=== PATIENT | female | born 1945 | race Caucasian/White ===

== ENCOUNTER → 2017-10-04 | Outpatient (CLI) | payer MEDICARE ==
[~2017-10-04] MED LIST: CALCIUM + D 6001 TA1 PO; DIABETA5 MG PO; GABAPENTIN600 MG PO; HYDROCODONE BIT1 T11 PO; LANTUS100 U/ML SC; PRAVACHOL40 MG PO; VITAMIN D5000 I2 PO
== END | disposition home or self-care (01) ==
LOC: MAMMO 09-22 14:00 → RAD 09-28 13:30 → MAMMO 09-29 11:00 → RAD 09-29 13:30
DX: Z13.820 Encounter for screening for osteoporosis (principal); R92.8 Other abnormal and inconclusive findings on diagnostic imaging of breast; N95.9 Unspecified menopausal and perimenopausal disorder; Z90.710 Acquired absence of both cervix and uterus

== ENCOUNTER → 2018-11-23 | Outpatient (CLI) | payer MEDICARE | END | disposition home or self-care (01) | LOC: MAMMO 12:34 | DX: R92.8 Other abnormal and inconclusive findings on diagnostic imaging of breast (principal); R92.1 Mammographic calcification found on diagnostic imaging of breast ==

== ENCOUNTER 2019-09-12 15:26 | Emergency (ER) | payer MEDICARE ==
[~2019-09-12] VITALS: Ht 172.7 cm; Wt 80.3 kg
[2019-09-12 15:48] LABS: BASO % 0.4 % (0.0-1.0); EOS % 0.2 % (1.0-4.0); HEMOGLOBIN 14.8 g/dl (12.0-16.0); LYMPH % 30.7 % (27.0-41.0); MEAN CELL VOLUME 97.2 fl (81.0-99.0); MEAN CORPUSCULAR HGB CONC 32.9 g/dl (33.0-37.0); MEAN PLATELET VOLUME 10.2 fl (9.6-12.3); MONO # 0.5 10*3/uL (0.1-1.0); MONO % 5.3 % (3.0-9.0); NEUT # 6.2 10*3/uL (2.3-7.9); NEUT % 63.1 % (47.0-73.0); PLATELET COUNT AUTOMATED 167 10*3/uL (130-400); RED BLOOD COUNT 4.63 10*6/uL (4.10-5.10); RED CELL DISTRI WIDTH 13.2 % (0-14.5); WHITE BLOOD COUNT 9.9 10*3/uL (4.8-10.8)
[2019-09-12 16:04] LABS: ALBUMIN 3.9 gm/dl (3.1-4.5); ALKALINE PHOSPHATASE 97 U/L (45-117); BUN 20 mg/dl (7-24); CHLORIDE 102 mmol/L (98-107); POTASSIUM 3.7 mmol/L (3.5-5.1); SGOT/AST 24 IU/L (3-35); SGPT/ALT 28 U/L (12-78); SODIUM 139 mmol/L (136-145); TOTAL PROTEIN 7.3 gm/dL (6.4-8.2)
[2019-09-12 16:10] LABS: ACT PARTIAL THROMBO TIME 25.6 SECONDS (20.0-32.1); INTERNATIONAL NORM RATIO 0.9 (2.0-3.5)
== END 2019-09-12 23:33 | disposition short-term general hospital (02) ==
LOC: ED 15:26
PROVIDERS: Emergency Medicine
DX: S72.351A Displaced comminuted fracture of shaft of right femur, initial encounter for closed fracture (principal); R42 Dizziness and giddiness; E78.5 Hyperlipidemia, unspecified; Z90.49 Acquired absence of other specified parts of digestive tract; Z90.710 Acquired absence of both cervix and uterus; Z98.51 Tubal ligation status; Z96.652 Presence of left artificial knee joint; Z79.4 Long term (current) use of insulin; Z79.899 Other long term (current) drug therapy; Z88.8 Allergy status to other drugs, medicaments and biological substances; Z85.3 Personal history of malignant neoplasm of breast; W18.30XA Fall on same level, unspecified, initial encounter; Y93.89 Activity, other specified; Y92.89 Other specified places as the place of occurrence of the external cause; Y99.9 Unspecified external cause status

== ENCOUNTER → 2020-03-21 | Outpatient (CLI) | payer MEDICARE | END | disposition home or self-care (01) | LOC: COVID19 08:10 | DX: R50.9 Fever, unspecified (principal) ==

== ENCOUNTER → 2020-05-20 | Outpatient (CLI) | payer MEDICARE ==
[2020-05-20 13:56] LABS: BASO % 0.5 % (0.0-1.0); EOS % 0.3 % (1.0-4.0); HEMATOCRIT 45.5 % (37.0-47.0); LYMPH % 33.7 % (27.0-41.0); MEAN CELL VOLUME 94.6 fl (81.0-99.0); MEAN CORPUSCULAR HGB 30.4 pg (27.0-31.0); MEAN CORPUSCULAR HGB CONC 32.1 g/dl (33.0-37.0); MEAN PLATELET VOLUME 10.4 fl (9.6-12.3); MONO # 0.6 10*3/uL (0.1-1.0); MONO % 6.9 % (3.0-9.0); NEUT # 5.2 10*3/uL (2.3-7.9); NEUT % 58.3 % (47.0-73.0); PLATELET COUNT AUTOMATED 181 10*3/uL (130-400); RED BLOOD COUNT 4.81 10*6/uL (4.10-5.10); RED CELL DISTRI WIDTH 13.4 % (0-14.5); WHITE BLOOD COUNT 8.9 10*3/uL (4.8-10.8)
[2020-05-20 14:26] LABS: ALBUMIN 3.9 gm/dl (3.1-4.5); ALKALINE PHOSPHATASE 135 U/L (45-117); BUN 19 mg/dl (7-24); CHLORIDE 101 mmol/L (98-107); CHOLESTEROL 121 mg/dL (<200); CREATININE 0.68 mg/dL (0.55-1.02); HDL CHOLESTEROL 37 mg/dl (40-60); LDL CHOLESTEROL 49 mg/dL (9-159); POTASSIUM 4.2 mmol/L (3.5-5.1); SGOT/AST 26 IU/L (3-35); SGPT/ALT 28 U/L (12-78); SODIUM 137 mmol/L (136-145); TOTAL PROTEIN 7.6 gm/dL (6.4-8.2); TRIGLYCERIDES 177 mg/dl (<150); VLDL CHOLESTEROL 35 mg/dL (6-40)
[2020-05-20 14:48] LABS: VITAMIN D, 25-HYDROXY 91.8 ng/mL (30-100)
== END | disposition home or self-care (01) ==
LOC: LAB 12:56 → MAMMO 13:00
PROVIDERS: ATTEND Internal Medicine
DX: R92.2 Inconclusive mammogram (principal); E11.9 Type 2 diabetes mellitus without complications; E55.9 Vitamin D deficiency, unspecified; I10 Essential (primary) hypertension; R92.8 Other abnormal and inconclusive findings on diagnostic imaging of breast; Z00.00 Encounter for general adult medical examination without abnormal findings

== ENCOUNTER → 2020-12-18 | Outpatient (CLI) | payer MEDICARE | END | disposition home or self-care (01) | LOC: RAD 09:43 | PROVIDERS: ATTEND Internal Medicine | DX: M19.072 Primary osteoarthritis, left ankle and foot (principal); R60.0 Localized edema; M25.775 Osteophyte, left foot; M76.62 Achilles tendinitis, left leg; M77.32 Calcaneal spur, left foot ==

== ENCOUNTER → 2021-11-26 | Outpatient (CLI) | payer MEDICARE | END | disposition home or self-care (01) | LOC: LAB 13:02 → MAMMO 13:30 | PROVIDERS: ATTEND Internal Medicine | DX: Z13.820 Encounter for screening for osteoporosis (principal); R92.8 Other abnormal and inconclusive findings on diagnostic imaging of breast; Z90.710 Acquired absence of both cervix and uterus; Z78.0 Asymptomatic menopausal state ==

== ENCOUNTER 2022-12-05 16:09 | Inpatient (IN) | payer MEDICARE ==
[~2022-12-05] VITALS: Ht 172.7 cm; Wt 83.9 kg
[~2022-12-05 16:09] MED LIST changes: +CLOPIDOGREL75 MG PO; +GLIPIZIDE10 M2 PO; +LEVEMIR FL100 UNIT/1 SC; +LISINOPRIL2.5 MG PO; +MECLIZINE HCL25 M2 PO; +MELATONIN10 M6 PO; +WELLBUTRIN SR150 MG PO
[2022-12-05 16:15] VITALS: BP 155/88
[2022-12-05 16:59] LABS: BASO % 0.2 % (0.0-1.0); EOS % 0.1 % (1.0-4.0); HEMATOCRIT 38.5 % (37.0-47.0); LYMPH # 0.8 10*3/uL (1.3-4.4); LYMPH % 8.7 % (27.0-41.0); MEAN CORPUSCULAR HGB 29.9 pg (27.0-31.0); MEAN CORPUSCULAR HGB CONC 31.2 g/dl (33.0-37.0); MEAN PLATELET VOLUME 9.7 fl (9.6-12.3); MONO % 11.3 % (3.0-9.0); NEUT # 6.9 10*3/uL (2.3-7.9); NEUT % 78.8 % (47.0-73.0); PLATELET COUNT AUTOMATED 186 10*3/uL (130-400); RED BLOOD COUNT 4.01 10*6/uL (4.10-5.10); RED CELL DISTRI WIDTH 15.7 % (0-14.5); WHITE BLOOD COUNT 8.7 10*3/uL (4.8-10.8)
[2022-12-05 17:16] LABS: ALKALINE PHOSPHATASE 82 U/L (46-116); BUN 22 mg/dl (9-23); CHLORIDE 99 mmol/L (98-107); POTASSIUM 4.5 mmol/L (3.4-5.1); SGPT/ALT 16 U/L (10-49)
[2022-12-05 18:47] LABS: BILIRUBIN Negative (Negative); BLOOD Negative (Negative); CLARITY Cloudy (Clear); COLOR Dark Yellow (Yellow); GLUCOSE Negative (Negative); KETONE 2+ (Negative); LEUKO ESTERASE Negative (Negative); NITRITE Negative (Negative); PH 5.5 (4.5-8.0); SPECIFIC GRAVITY >= 1.030 (1.001-1.030)
[2022-12-05] MEDS ORDERED: AMOXICILLIN875 MG PO (19:10)
[2022-12-05] MEDS ORDERED: PREDNISONE5 MG PO (19:10)
[2022-12-05 19:12] LABS: EPITHELIAL CELLS 41-50; RBC 0-2 rbc/hpf (0-2); WBC 0-2 wbc/hpf (0-5)
[2022-12-05 19:45] VITALS: BP 124/58
[2022-12-05] MEDS ORDERED: CEFTRIAXONE1 GM IJ (20:12)
[2022-12-05] MEDS ORDERED: HYDROCODONE-AC1 EAC1 PO (21:58)
[2022-12-06 05:35] LABS: ALKALINE PHOSPHATASE 70 U/L (46-116); BUN 23 mg/dl (9-23); CHLORIDE 99 mmol/L (98-107); POTASSIUM 4.5 mmol/L (3.4-5.1); SGPT/ALT 11 U/L (10-49); TOTAL PROTEIN 6.2 gm/dL (6.0-8.0)
[2022-12-06 06:25] LABS: BASO % 0.2 % (0.0-1.0); HEMATOCRIT 35.5 % (37.0-47.0); LYMPH # 0.6 10*3/uL (1.3-4.4); LYMPH % 13.1 % (27.0-41.0); MEAN CELL VOLUME 95.2 fl (81.0-99.0); MEAN CORPUSCULAR HGB 29.2 pg (27.0-31.0); MEAN CORPUSCULAR HGB CONC 30.7 g/dl (33.0-37.0); MONO # 0.3 10*3/uL (0.1-1.0); MONO % 5.5 % (3.0-9.0); NEUT # 3.8 10*3/uL (2.3-7.9); NEUT % 79.7 % (47.0-73.0); NUCLEATED RED BLOOD CELL 0.4 % (0.0-0.0); PLATELET COUNT AUTOMATED 172 10*3/uL (130-400); RED BLOOD COUNT 3.73 10*6/uL (4.10-5.10); RED CELL DISTRI WIDTH 15.8 % (0-14.5); WHITE BLOOD COUNT 4.8 10*3/uL (4.8-10.8)
[2022-12-06 08:00] VITALS: BP 127/45
[2022-12-06 12:00] VITALS: BP 129/54
[2022-12-06 16:00] VITALS: BP 118/53
[2022-12-06 20:00] VITALS: BP 137/55
[2022-12-07] VITALS: BP 121/70
[2022-12-07 08:00] VITALS: BP 141/46
[2022-12-07 12:00] VITALS: BP 142/51
[2022-12-07 16:00] VITALS: BP 121/51
[2022-12-07 20:00] VITALS: BP 144/53
[2022-12-08] VITALS: BP 125/41
[2022-12-08 12:00] VITALS: BP 133/50
[2022-12-08 16:00] VITALS: BP 122/61
[2022-12-08 20:00] VITALS: BP 133/51
[2022-12-09] VITALS: BP 149/56
[2022-12-09 08:00] VITALS: BP 118/50
[2022-12-09 12:00] VITALS: BP 139/55
[2022-12-09 16:00] VITALS: BP 121/52
[2022-12-09 20:00] VITALS: BP 142/48
[2022-12-10] VITALS: BP 154/54
[2022-12-10 06:23] LABS: BASO % 0.1 % (0.0-1.0); HEMATOCRIT 36.7 % (37.0-47.0); LYMPH # 1.6 10*3/uL (1.3-4.4); LYMPH % 18.3 % (27.0-41.0); MEAN CELL VOLUME 94.1 fl (81.0-99.0); MEAN CORPUSCULAR HGB 29.7 pg (27.0-31.0); MEAN CORPUSCULAR HGB CONC 31.6 g/dl (33.0-37.0); MEAN PLATELET VOLUME 9.9 fl (9.6-12.3); MONO # 0.4 10*3/uL (0.1-1.0); MONO % 4.3 % (3.0-9.0); NEUT # 6.5 10*3/uL (2.3-7.9); NEUT % 75.6 % (47.0-73.0); PLATELET COUNT AUTOMATED 202 10*3/uL (130-400); RED CELL DISTRI WIDTH 15.5 % (0-14.5); WHITE BLOOD COUNT 8.6 10*3/uL (4.8-10.8)
[2022-12-10 08:00] VITALS: BP 131/45
[2022-12-10] MEDS ORDERED: MEDROL DOSEPAK4 MG PO (10:45)
[2022-12-10] MEDS ORDERED: AMOX-CLAV 875-1 EACH PO (10:45)
== END 2022-12-10 11:45 | disposition home or self-care (01) | DRG 189 ==
LOC: ED 16:09 → EDHOLD 18:30 → 4E 18:30
PROVIDERS: Internal Medicine; ADMIT Internal Medicine; ATTEND Internal Medicine
DX: J96.21 Acute and chronic respiratory failure with hypoxia (principal); J44.1 Chronic obstructive pulmonary disease with (acute) exacerbation; F33.0 Major depressive disorder, recurrent, mild; F51.04 Psychophysiologic insomnia; F51.01 Primary insomnia; F17.210 Nicotine dependence, cigarettes, uncomplicated; E11.42 Type 2 diabetes mellitus with diabetic polyneuropathy; M47.816 Spondylosis without myelopathy or radiculopathy, lumbar region; K59.09 Other constipation; E78.2 Mixed hyperlipidemia; E11.65 Type 2 diabetes mellitus with hyperglycemia; T38.0X5A Adverse effect of glucocorticoids and synthetic analogues, initial encounter; Y92.89 Other specified places as the place of occurrence of the external cause; Z71.6 Tobacco abuse counseling; Z88.5 Allergy status to narcotic agent; Z88.8 Allergy status to other drugs, medicaments and biological substances; Z79.1 Long term (current) use of non-steroidal anti-inflammatories (NSAID); Z79.899 Other long term (current) drug therapy

== ENCOUNTER → 2022-12-16 | Outpatient (CLI) | payer MEDICARE ==
[~2022-12-16] MED LIST changes: +AMOX-CLAV 875-1 EACH PO; +AMOXICILLIN875 MG PO; +CEFTRIAXONE1 GM IJ; +HYDROCODONE-AC1 EAC1 PO; +MEDROL DOSEPAK4 MG PO; +PREDNISONE5 MG PO
== END | disposition home or self-care (01) ==
LOC: CT 13:37
PROVIDERS: ATTEND Internal Medicine
DX: J98.11 Atelectasis (principal); R91.1 Solitary pulmonary nodule; Z90.49 Acquired absence of other specified parts of digestive tract

== ENCOUNTER 2023-02-02 13:32 | Emergency (ER) | payer MEDICARE ==
[~2023-02-02] VITALS: Wt 85.7 kg
[2023-02-02 14:30] LABS: BASO % 0.4 % (0.0-1.0); EOS % 0.1 % (1.0-4.0); HEMATOCRIT 40.2 % (37.0-47.0); LYMPH # 1.6 10*3/uL (1.3-4.4); LYMPH % 14.5 % (27.0-41.0); MEAN CELL VOLUME 96.4 fl (81.0-99.0); MEAN CORPUSCULAR HGB CONC 31.1 g/dl (33.0-37.0); MEAN PLATELET VOLUME 9.6 fl (9.6-12.3); MONO # 0.7 10*3/uL (0.1-1.0); MONO % 6.6 % (3.0-9.0); NEUT # 8.7 10*3/uL (2.3-7.9); NEUT % 77.9 % (47.0-73.0); PLATELET COUNT AUTOMATED 239 10*3/uL (130-400); RED BLOOD COUNT 4.17 10*6/uL (4.10-5.10); RED CELL DISTRI WIDTH 17.6 % (0-14.5); WHITE BLOOD COUNT 11.1 10*3/uL (4.8-10.8)
[2023-02-02 14:41] LABS: ACT PARTIAL THROMBO TIME 26.2 SECONDS (20.0-32.1)
[2023-02-02 14:55] LABS: ALKALINE PHOSPHATASE 92 U/L (46-116); BUN 15 mg/dl (9-23); CHLORIDE 103 mmol/L (98-107); SGPT/ALT 9 U/L (10-49); TOTAL PROTEIN 7.4 gm/dL (6.0-8.0)
== END 2023-02-02 15:36 | disposition home or self-care (01) ==
LOC: ED 13:32
PROVIDERS: Family Medicine
DX: S20.222A Contusion of left back wall of thorax, initial encounter (principal); S50.811A Abrasion of right forearm, initial encounter; M19.90 Unspecified osteoarthritis, unspecified site; E78.00 Pure hypercholesterolemia, unspecified; E11.40 Type 2 diabetes mellitus with diabetic neuropathy, unspecified; Z88.5 Allergy status to narcotic agent; Z88.8 Allergy status to other drugs, medicaments and biological substances; Z90.49 Acquired absence of other specified parts of digestive tract; Z90.710 Acquired absence of both cervix and uterus; Z98.890 Other specified postprocedural states; Z98.51 Tubal ligation status; W18.39XA Other fall on same level, initial encounter; Y93.89 Activity, other specified; Y92.89 Other specified places as the place of occurrence of the external cause; Y99.8 Other external cause status

== ENCOUNTER 2023-03-18 09:28 | Emergency (ER) | payer MEDICARE ==
[~2023-03-18] VITALS: Ht 172.7 cm; Wt 81.6 kg
[~2023-03-18 09:28] MED LIST changes: +ACETAZOLAMIDE250 MG PO; +ALDACTONE25 MG PO; +BUMETANIDE2 MG PO; +CARVEDILOL3.125 MG PO; +JARDIANCE10 MG PO; +LANTUS SOL100 UNIT/1 SC; +LEVALBUTER0.63 MG/4 NEB; +LOPRESSOR25 MG PO; +XARE20MG PO
[2023-03-18] MEDS ORDERED: METOPROLOL SUCC50 M1 PO (10:10)
[2023-03-18 10:23] LABS: HEMATOCRIT 34.1 % (37.0-47.0); MEAN CELL VOLUME 96.3 fl (81.0-99.0); MEAN CORPUSCULAR HGB 29.7 pg (27.0-31.0); MEAN CORPUSCULAR HGB CONC 30.8 g/dl (33.0-37.0); MEAN PLATELET VOLUME 9.2 fl (9.6-12.3); NUCLEATED RED BLOOD CELL 0.1 % (0.0-0.0); PLATELET COUNT AUTOMATED 386 10*3/uL (130-400); RED BLOOD COUNT 3.54 10*6/uL (4.10-5.10); RED CELL DISTRI WIDTH 17.5 % (0-14.5); WHITE BLOOD COUNT 16.2 10*3/uL (4.8-10.8)
[2023-03-18 10:24] LABS: MANUAL DIFF REFLEX YES
[2023-03-18 10:33] LABS: ACT PARTIAL THROMBO TIME 25.4 SECONDS (20.0-32.1); INTERNATIONAL NORM RATIO 1.1 (2.0-3.5)
[2023-03-18 10:43] LABS: OVALOCYTES FEW; PLATELET SUFFICIENCY NORMAL (NORMAL); POLYCHROMASIA SLIGHT; ROULEAUX SLIGHT; TOTAL CELLS COUNTED 100 #CELLS; TOXIC GRANULATION SLIGHT
[2023-03-18 10:44] LABS: BURR CELLS FEW
[2023-03-18 10:49] LABS: ALKALINE PHOSPHATASE 99 U/L (46-116); BUN 31 mg/dl (9-23); CHLORIDE 97 mmol/L (98-107); POTASSIUM 3.6 mmol/L (3.4-5.1); SGPT/ALT 18 U/L (10-49); TOTAL PROTEIN 6.6 gm/dL (6.0-8.0)
== END 2023-03-18 12:53 ==
LOC: ED 09:28
PROVIDERS: Emergency Medicine
DX: R06.00 Dyspnea, unspecified (principal); Z88.5 Allergy status to narcotic agent; Z88.8 Allergy status to other drugs, medicaments and biological substances; Z79.899 Other long term (current) drug therapy; Z79.4 Long term (current) use of insulin; Z90.711 Acquired absence of uterus with remaining cervical stump; Z90.49 Acquired absence of other specified parts of digestive tract

== ENCOUNTER 2023-04-08 12:50 | Inpatient (IN) | payer MEDICARE ==
[2023-04-08] VITALS (10 sets, daily range): BP systolic 72–116; BP diastolic 28–50
[~2023-04-08] VITALS: Ht 173 cm; Wt 80.3 kg
[~2023-04-08 12:50] MED LIST changes: +BREO ELLIPTA 11 EACH INH; +IMDUR SA30 MG PO; +Lantus SC; +METOPROLOL SUCC50 M1 PO
[2023-04-08 13:26] LABS: HEMATOCRIT 21.4 % (37.0-47.0); MEAN CELL VOLUME 96.4 fl (81.0-99.0); MEAN CORPUSCULAR HGB 28.4 pg (27.0-31.0); MEAN CORPUSCULAR HGB CONC 29.4 g/dl (33.0-37.0); MEAN PLATELET VOLUME 10.9 fl (9.6-12.3); PLATELET COUNT AUTOMATED 260 10*3/uL (130-400); RED BLOOD COUNT 2.22 10*6/uL (4.10-5.10); RED CELL DISTRI WIDTH 18.6 % (0-14.5); WHITE BLOOD COUNT 11.5 10*3/uL (4.8-10.8)
[2023-04-08 13:27] LABS: MANUAL DIFF REFLEX YES
[2023-04-08 13:39] LABS: ACT PARTIAL THROMBO TIME 32.1 SECONDS (20.0-32.1); INTERNATIONAL NORM RATIO 1.5 (2.0-3.5)
[2023-04-08 13:46] LABS: ALKALINE PHOSPHATASE 74 U/L (46-116); BUN 33 mg/dl (9-23); CHLORIDE 91 mmol/L (98-107); POTASSIUM 4.4 mmol/L (3.4-5.1); SGPT/ALT 11 U/L (10-49); TOTAL PROTEIN 6.1 gm/dL (6.0-8.0)
[2023-04-08 13:51] LABS: PLATELET SUFFICIENCY NORMAL (NORMAL); POLYCHROMASIA MODERATE; TOTAL CELLS COUNTED 100 #CELLS
[2023-04-08 20:08] LABS: HEMATOCRIT 25.8 % (37.0-47.0)
[2023-04-09] VITALS (8 sets, daily range): BP systolic 86–117; BP diastolic 32–62
[2023-04-09 04:23] LABS: HEMATOCRIT 26.4 % (37.0-47.0); LYMPH % 12.1 % (27.0-41.0); MEAN CORPUSCULAR HGB 27.5 pg (27.0-31.0); MEAN CORPUSCULAR HGB CONC 29.9 g/dl (33.0-37.0); MEAN PLATELET VOLUME 10.9 fl (9.6-12.3); MONO # 0.1 10*3/uL (0.1-1.0); MONO % 0.9 % (3.0-9.0); NEUT # 6.8 10*3/uL (2.3-7.9); NEUT % 85.7 % (47.0-73.0); PLATELET COUNT AUTOMATED 266 10*3/uL (130-400); RED BLOOD COUNT 2.87 10*6/uL (4.10-5.10); RED CELL DISTRI WIDTH 19.7 % (0-14.5)
[2023-04-09 04:38] LABS: POTASSIUM 4.4 mmol/L (3.4-5.1)
[2023-04-09 10:02] LABS: BILIRUBIN Negative (Negative); BLOOD Negative (Negative); CLARITY Clear (Clear); COLOR Yellow (Yellow); GLUCOSE 3+ (Negative); KETONE Negative (Negative); LEUKO ESTERASE Negative (Negative); NITRITE Negative (Negative)
[2023-04-09 11:04] LABS: BACTERIA 1+; MUCOUS 1+
[2023-04-09] MEDS ORDERED: HYDROCODONE-AC1 EAC1 PO (12:52)
[2023-04-09] MEDS ORDERED: CLONAZEPAM0.5 M2 PO (12:52)
[2023-04-10] VITALS: BP 104/58
[2023-04-10 04:00] VITALS: BP 96/54
[2023-04-10] MEDS ORDERED: ALDACTONE25 M1 PO (07:20)
[2023-04-10 08:00] VITALS: BP 108/54
[2023-04-10 12:00] VITALS: BP 104/54
[2023-04-10 16:00] VITALS: BP 103/50
[2023-04-10 20:00] VITALS: BP 98/56
[2023-04-11] VITALS: BP 106/56
[2023-04-11 04:00] VITALS: BP 115/58
[2023-04-11 05:27] LABS: ALKALINE PHOSPHATASE 76 U/L (46-116); BUN 33 mg/dl (9-23); CHLORIDE 90 mmol/L (98-107); POTASSIUM 4.8 mmol/L (3.4-5.1); SGPT/ALT 16 U/L (10-49); TOTAL PROTEIN 6.3 gm/dL (6.0-8.0)
[2023-04-11 06:46] LABS: BASO % 0.1 % (0.0-1.0); HEMATOCRIT 26.4 % (37.0-47.0); LYMPH % 10.1 % (27.0-41.0); MEAN CELL VOLUME 93.3 fl (81.0-99.0); MEAN CORPUSCULAR HGB 27.2 pg (27.0-31.0); MEAN CORPUSCULAR HGB CONC 29.2 g/dl (33.0-37.0); MEAN PLATELET VOLUME 11.3 fl (9.6-12.3); MONO # 0.6 10*3/uL (0.1-1.0); MONO % 5.9 % (3.0-9.0); NEUT # 8.3 10*3/uL (2.3-7.9); NUCLEATED RED BLOOD CELL 0.3 % (0.0-0.0); PLATELET COUNT AUTOMATED 244 10*3/uL (130-400); RED BLOOD COUNT 2.83 10*6/uL (4.10-5.10); RED CELL DISTRI WIDTH 19.2 % (0-14.5)
[2023-04-11 08:00] VITALS: BP 107/53
[2023-04-11 12:00] VITALS: BP 113/56
[2023-04-11 16:00] VITALS: BP 103/55
[2023-04-11 20:00] VITALS: BP 113/73
[2023-04-12 00:05] VITALS: BP 117/56
[2023-04-12 07:22] LABS: BASO % 0.1 % (0.0-1.0); EOS % 0.3 % (1.0-4.0); HEMATOCRIT 28.7 % (37.0-47.0); LYMPH # 1.2 10*3/uL (1.3-4.4); LYMPH % 7.8 % (27.0-41.0); MEAN CELL VOLUME 92.6 fl (81.0-99.0); MEAN CORPUSCULAR HGB 27.7 pg (27.0-31.0); MEAN PLATELET VOLUME 10.7 fl (9.6-12.3); MONO # 0.9 10*3/uL (0.1-1.0); NEUT # 12.5 10*3/uL (2.3-7.9); NEUT % 85.1 % (47.0-73.0); NUCLEATED RED BLOOD CELL 0.1 10*3/uL (0.0-0.0); NUCLEATED RED BLOOD CELL 0.6 % (0.0-0.0); PLATELET COUNT AUTOMATED 259 10*3/uL (130-400); RED CELL DISTRI WIDTH 18.6 % (0-14.5); WHITE BLOOD COUNT 14.7 10*3/uL (4.8-10.8)
[2023-04-12 08:00] VITALS: BP 90/45
[2023-04-12 12:00] VITALS: BP 113/62
[2023-04-12 16:00] VITALS: BP 102/48
[2023-04-12 20:00] VITALS: BP 109/54
[2023-04-13] VITALS: BP 104/60
[2023-04-13 08:00] VITALS: BP 133/41
[2023-04-13 12:00] VITALS: BP 124/59
[2023-04-13 15:56] VITALS: BP 101/48
[2023-04-13 20:00] VITALS: BP 110/57
[2023-04-14] VITALS: BP 115/52
[2023-04-14 06:11] LABS: BUN 26 mg/dl (9-23); CHLORIDE 87 mmol/L (98-107); POTASSIUM 3.7 mmol/L (3.4-5.1)
[2023-04-14 06:14] LABS: BASO % 0.1 % (0.0-1.0); EOS % 0.1 % (1.0-4.0); HEMATOCRIT 29.4 % (37.0-47.0); LYMPH # 2.8 10*3/uL (1.3-4.4); LYMPH % 20.4 % (27.0-41.0); MEAN CELL VOLUME 92.5 fl (81.0-99.0); MEAN CORPUSCULAR HGB CONC 29.3 g/dl (33.0-37.0); MEAN PLATELET VOLUME 10.8 fl (9.6-12.3); MONO # 1.2 10*3/uL (0.1-1.0); MONO % 8.6 % (3.0-9.0); NEUT # 9.5 10*3/uL (2.3-7.9); NEUT % 69.6 % (47.0-73.0); NUCLEATED RED BLOOD CELL 0.1 10*3/uL (0.0-0.0); NUCLEATED RED BLOOD CELL 0.7 % (0.0-0.0); PLATELET COUNT AUTOMATED 262 10*3/uL (130-400); RED BLOOD COUNT 3.18 10*6/uL (4.10-5.10); WHITE BLOOD COUNT 13.7 10*3/uL (4.8-10.8)
[2023-04-14 08:00] VITALS: BP 104/52
[2023-04-14 08:35] VITALS: BP 120/51
[2023-04-14 11:25] VITALS: BP 98/52
[2023-04-22] MEDS ORDERED: CLONAZEPAM0.25 MG PO (16:45)
[2023-04-22] MEDS ORDERED: IMDUR SA30 MG PO (16:47)
[2023-04-22] MEDS ORDERED: JARDIANCE10 MG PO (16:48)
[2023-04-22] MEDS ORDERED: PREDNISONE5 MG PO (16:49)
[2023-04-22] MEDS ORDERED: PULMICORT RES0.25 M1 INH (16:54)
[2023-04-22] MEDS ORDERED: LEVALBUTER0.63 MG/4 NEB (16:56)
[2023-04-22] MEDS ORDERED: HUMULIN R100 UNIT/1 SC (17:03)
== END 2023-04-14 17:15 | DRG 193 ==
LOC: ED 12:50 → EDHOLD 15:48 → ICCU 15:48 → 4E 04-11 18:05
PROVIDERS: Emergency Medicine; Internal Medicine; ADMIT Internal Medicine; ATTEND Internal Medicine
PROC: 30233N1 Transfusion of Nonautologous Red Blood Cells into Peripheral Vein, Percutaneous Approach (ICD-10-PCS; principal; 2023-04-08)
PROC: 5A09357 Assistance with Respiratory Ventilation, Less than 24 Consecutive Hours, Continuous Positive Airway Pressure (ICD-10-PCS; 2023-04-10)
PROC: 5A09357 Assistance with Respiratory Ventilation, Less than 24 Consecutive Hours, Continuous Positive Airway Pressure (ICD-10-PCS; 2023-04-11)
DX: J18.9 Pneumonia, unspecified organism (principal); G93.41 Metabolic encephalopathy; I50.23 Acute on chronic systolic (congestive) heart failure; J44.1 Chronic obstructive pulmonary disease with (acute) exacerbation; I48.21 Permanent atrial fibrillation; F33.9 Major depressive disorder, recurrent, unspecified; K92.2 Gastrointestinal hemorrhage, unspecified; J44.0 Chronic obstructive pulmonary disease with (acute) lower respiratory infection; I25.10 Atherosclerotic heart disease of native coronary artery without angina pectoris; E78.2 Mixed hyperlipidemia; I25.5 Ischemic cardiomyopathy; F41.1 Generalized anxiety disorder; T43.595A Adverse effect of other antipsychotics and neuroleptics, initial encounter; E11.42 Type 2 diabetes mellitus with diabetic polyneuropathy; R62.7 Adult failure to thrive; D50.9 Iron deficiency anemia, unspecified; T38.0X5A Adverse effect of glucocorticoids and synthetic analogues, initial encounter; Y92.89 Other specified places as the place of occurrence of the external cause; Z88.6 Allergy status to analgesic agent; Z79.01 Long term (current) use of anticoagulants; Z68.28 Body mass index [BMI] 28.0-28.9, adult; G89.29 Other chronic pain